=== PATIENT | male | born 1980 | race Native Hawaiian/Other Pacific Islander ===

== ENCOUNTER 2022-06-05 13:46 | Outpatient (CLI) | payer OTHER | END 2022-06-05 19:00 | disposition home or self-care (01) | LOC: CT 13:46 | PROVIDERS: ATTEND Nurse Practitioner | DX: Z13.6 Encounter for screening for cardiovascular disorders (principal) ==

== ENCOUNTER 2022-06-18 13:12 | Outpatient (CLI) | payer BC | END 2022-06-18 19:05 | disposition home or self-care (01) | LOC: MRI 13:12 | PROVIDERS: ATTEND Nurse Practitioner | DX: M54.14 Radiculopathy, thoracic region (principal); M54.12 Radiculopathy, cervical region ==